=== PATIENT | female | born 1940 ===

== ENCOUNTER 2020-05-11 05:52 | Observation (INO) ==
[2020-05-11] MEDS ORDERED: Famotidine IV 10 MG/ML 2 ml VIAL (20 mg) IV ONE (06:00)
[2020-05-11] MEDS ORDERED: Dexamethasone IV 4 MG/ML VIAL 1 ml VIAL IV SLOW PU ONE (06:00)
[2020-05-11] MEDS ORDERED: Buffered Lidocaine 1% SYRIN 1 ml INTRADERM ONE (06:00)
[2020-05-11] MEDS ORDERED: Lactated Ringers 1000 ml BAG 1,000 ML IV SCH (06:00)
[2020-05-11] MEDS ORDERED: Dexamethasone IV 4 MG/ML VIAL 1 ml VIAL ONE (06:56)
[2020-05-11] MEDS ORDERED: Famotidine IV 10 MG/ML 2 ml VIAL (20 mg) ONE (06:56)
[2020-05-11] MEDS ORDERED: ceFAZolin 2 GM PREMIX 2 GM/50 ML BAG ONE (06:56)
[2020-05-11] MEDS ORDERED: fentaNYL 100 mcg/2 ml 50 MCG/ML VIAL ONE ×3 (06:59→10:39)
[2020-05-11] MEDS ORDERED: Propofol 10 MG/ML 20 ML BTL ONE (06:59)
[2020-05-11] MEDS ORDERED: Glycopyrrolate IV 0.2 MG/ML 1 ML VIAL ONE (07:00)
[2020-05-11] MEDS ORDERED: Lidocaine 2% PF 5 ML VIAL ONE (07:01)
[2020-05-11] MEDS ORDERED: Propofol 10 mg/ml 100 ML BTL 0 ML ONE (07:08)
[2020-05-11] MEDS ORDERED: ROPIVACAINE 5 MG/ML 30 ML BTL (0.5%) ONE (07:40)
[2020-05-11] MEDS ORDERED: HYDROmorphone 1 MG/1 ML SYRINGE ONE ×2 (07:44→10:39)
[2020-05-11] MEDS ORDERED: Rocuronium 50 mg VIAL 10 mg/ml 5 ml VIAL (50 mg) ONE (07:51)
[2020-05-11] MEDS ORDERED: HYDROcodone/ACETAMIN 5/325 mg TAB PO PRN (08:16)
[2020-05-11] MEDS ORDERED: Prochlorperazine 5 mg/ml 2 ml VIAL (10 mg) IV PRN (08:16)
[2020-05-11] MEDS ORDERED: Naloxone 0.4 mg VIAL 0.4 mg/ml 1 ml VIAL IV PRN (08:16)
[2020-05-11] MEDS ORDERED: Ondansetron 4 mg VIAL 2 MG/ML 2 ml VIAL ONE (08:26)
[2020-05-11] MEDS ORDERED: EPHEDrine (Pressors) 50 MG/ML VIAL ONE (09:15)
[2020-05-11] MEDS ORDERED: Magnesium Hydroxide LIQ 30 ML UDC PO PRN (09:27)
[2020-05-11] MEDS ORDERED: Lactulose 30 ml UDC PO PRN (09:27)
[2020-05-11] MEDS ORDERED: Morphine 2 MG/ML SYRINGE IV PRN (09:27)
[2020-05-11] MEDS ORDERED: Ondansetron 4 mg VIAL 2 MG/ML 2 ml VIAL IV PRN (09:27)
[2020-05-11] MEDS ORDERED: diPHENhydraMINE 25 mg TAB PO PRN (09:27)
[2020-05-11] MEDS ORDERED: Ondansetron ODT 4 mg TAB 4 MG TAB PO PRN (09:27)
[2020-05-11] MEDS ORDERED: diPHENhydraMINE IV 50 MG/ML 1 ml VIAL (BENADRYL) IV PRN (09:27)
[2020-05-11] MEDS: fentaNYL 100 mcg/2 ml 50 MCG/ML VIAL IV PRN ×2 (10:43→11:04)
[2020-05-11] MEDS: HYDROmorphone 1 MG/1 ML SYRINGE IV PRN ×2 (10:46→11:41)
[2020-05-11] MEDS ORDERED: Levalbuterol 0.63MG/3ML NEB UNIT OF USE INH ONE ×2 (11:06)
[2020-05-11] MEDS ORDERED: oxyCODONE/Acetamin 5/325 mg TAB ONE (11:35)
[2020-05-11] MEDS: oxyCODONE/Acetamin 5/325 mg TAB PO PRN ×2 (11:37→11:39)
[2020-05-11] MEDS: Lactated Ringers 1000 ml BAG 1,000 ML IV SCH ×2 (14:21→23:58)
[2020-05-11 15:02] LABS: BUN/Creatinine Ratio 33.3 (8-20); Calcium 8.7 mg/dL (8.6-10.3); EGFR African American 90.7 (>60); EGFR Non-African American 74.9 (>60)
[2020-05-11] MEDS: ceFAZolin 1 GM ADVAN 1 GM in NS 0.9% 50 ML 50 ML IVPB SCH ×2 (16:25→23:58)
[2020-05-11 16:31] LABS: Magnesium 1.6 mg/dL (1.9-2.7)
[2020-05-11] MEDS: Magnesium Hydroxide LIQ 30 ML UDC PO SCH (21:18)
[2020-05-12 05:04] LABS: Hematocrit 31 % (35-47); Hemoglobin 10.7 g/dL (12.0-16.0); Mean Platelet Volume 8.1 fL (7.4-10.4); Platelet Count 171 10^3/uL (150-450)
[2020-05-12 05:22] LABS: BUN/Creatinine Ratio 30.2 (8-20); Calcium 8.6 mg/dL (8.6-10.3); EGFR African American 77.4 (>60); Potassium 4.2 mmol/L (3.5-5.0)
[2020-05-12] MEDS: Magnesium Hydroxide LIQ 30 ML UDC PO SCH (08:06)
[2020-05-12] MEDS: ceFAZolin 1 GM ADVAN 1 GM in NS 0.9% 50 ML 50 ML IVPB SCH (08:13)
[2020-05-12] MEDS ORDERED: Vitamin THERAPEUTIC TAB PO SCH (09:00)
[2020-05-12] MEDS ORDERED: Magnesium Sulfate IV 3 GM in NS 0.9% 100 ml BAG 100 ML IVPB ONE (10:00)
[2020-05-12 11:08] VITALS: BP 132/47
== END 2020-05-12 15:00 | disposition home or self-care (01) ==
LOC: INTOOBSV 05:52 → AA 05:52 → SSU 12:47
PROVIDERS: ADMIT Orthopaedic Surgery Adult Reconstructive Orthopaedic Surgery; ATTEND Orthopaedic Surgery Adult Reconstructive Orthopaedic Surgery